=== PATIENT | male | born 1955 | race Caucasian/White ===

== ENCOUNTER 2019-11-04 09:02 | Inpatient (IN) ==
[2019-11-04] MEDS ORDERED: SODIUM CHLORIDE 0.9% 500 ML IV STA ×2 (09:28→10:41)
[2019-11-04 10:02] LABS: Basophils # 0.1 10*3/uL (0.0-0.2); Basophils % 0.6 % (0.0-0.8); Eosinophils % 0.2 % (0.00-10.9); Hematocrit 18.6 VOL% (42.0-52.0); Immature Granulocytes Absolute 0.14 #; Lymphocytes # 1.1 10*3/uL (1.4-4.0); Lymphocytes % 7.3 % (21.2-54.2); Mean Corpuscular HGB Conc 26.3 GM/DL (32-36); Mean Corpuscular Volume 74.4 FL (87-102); Mean Platelet Volume 9.2 FL (9.6-12.0); NRBC # 0.29 10*3/uL; Neutrophils % 78.9 % (38.7-73.9); Platelet Count 547 T/CUMM (130-400); Red Cell Distribution Width 16.9 % (9.3-17.3); White Blood Count 14.3 T/CUMM (4-12)
[2019-11-04 10:20] LABS: Hemoglobin 4.9 GM/DL (14.0-18.0)
[2019-11-04 10:24] LABS: Alanine Aminotransferase 11 U/L (16-61); Albumin 3.2 G/DL (3.4-5.0); Alkaline Phosphatase 172 U/L (45-117); Aspartate Amino Transferase 8 U/L (0-37); Bilirubin,Total < 0.39 MG/DL (0.2-1.0); Blood Urea Nitrogen 50 MG/DL (7-18); Calcium 9.4 MG/DL (8.5-10.1); Estimated Glom Filtration Rate 23 ML/MIN; Glucose 409 MG/DL (74-106); Osmolality,Calculated 280.5 MOS/KG (273-304); Total Protein 7.3 G/DL (6.4-8.3)
[2019-11-04 10:32] LABS: Anisocytosis 1+; Hypochromasia 1+; Microcytosis 1+; Ovalocytes Slight
[2019-11-04 10:33] LABS: Platelet Estimate Increased
[2019-11-04] MEDS ORDERED: INSULIN REGULAR 100 UNIT/ML SUBCUT STA (10:37)
[2019-11-04] MEDS ORDERED: SODIUM CHLORIDE 0.9% 1,000 ML IV PRN ×2 (10:50→12:07)
[2019-11-04] MEDS ORDERED: ALBUTEROL 2.5 MG/3 ML NEB RESP TX PRN (12:05)
[2019-11-04] MEDS ORDERED: ACETAMINOPHEN 325 MG TABLET PO PRN (12:05)
[2019-11-04] MEDS ORDERED: ONDANSETRON 4 MG/2 ML VIAL IV PRN (12:05)
[2019-11-04] MEDS ORDERED: GLUCAGON 1 MG VIAL IM PRN (12:08)
[2019-11-04] MEDS ORDERED: SODIUM CHLORIDE 0.9% 1,000 ML IV SCH (12:30)
[2019-11-04 13:11] LABS: Ferritin 5.4 ng/ml (26-388)
[2019-11-04 14:19] LABS: Calcium 8.5 MG/DL (8.5-10.1); Osmolality,Calculated 281.5 MOS/KG (273-304)
[2019-11-04 14:19] LABS: Folate > 24.0 NG/ML (5.4-24.0); Vitamin B12 223 PG/ML (211-911)
[2019-11-04] MEDS: PANTOPRAZOLE 40 MG VIAL IV SCH ×2 (14:45→21:50)
[2019-11-04] MEDS: SODIUM BICARB INJ 150 MEQ in STERILE WATER INJ 850 ML IV SCH ×2 (14:45→23:01)
[2019-11-04] MEDS: INSULIN REGULAR 100 UNIT/ML SUBCUT SCH ×2 (16:57→21:12)
[2019-11-04] MEDS: INSULIN LISPRO 100 UNIT/ML SUBCUT SCH (16:58)
[2019-11-05 05:46] LABS: Basophils # 0.1 10*3/uL (0.0-0.2); Basophils % 0.7 % (0.0-0.8); Eosinophils # 0.2 10*3/uL (0.0-0.87); Eosinophils % 1.9 % (0.00-10.9); Hematocrit 26.2 VOL% (42.0-52.0); Hemoglobin 7.7 GM/DL (14.0-18.0); Immature Granulocytes % 0.4 %; Immature Granulocytes Absolute 0.04 #; Lymphocytes # 1.2 10*3/uL (1.4-4.0); Lymphocytes % 12.4 % (21.2-54.2); Mean Corpuscular HGB Conc 29.4 GM/DL (32-36); Mean Corpuscular Volume 78.9 FL (87-102); Mean Platelet Volume 8.9 FL (9.6-12.0); Monocytes % 9.4 % (1.7-12.7); NRBC # 0.09 10*3/uL; Neutrophils % 75.2 % (38.7-73.9); Platelet Count 437 T/CUMM (130-400); Red Blood Count 3.32 MC/CUMM (3.8-5.5); Red Cell Distribution Width 18.7 % (9.3-17.3); White Blood Count 9.9 T/CUMM (4-12)
[2019-11-05 06:11] LABS: Osmolality,Calculated 277.8 MOS/KG (273-304); Total Protein 6.5 G/DL (6.4-8.3)
[2019-11-05] MEDS: DEXTROSE 10% 250 ML BAG IV PRN ×2 (06:39→10:50)
[2019-11-05] MEDS: INSULIN REGULAR 100 UNIT/ML SUBCUT SCH ×4 (07:49→20:56)
[2019-11-05] MEDS: INSULIN LISPRO 100 UNIT/ML SUBCUT SCH (07:50)
[2019-11-05] MEDS ORDERED: SODIUM CHLORIDE 0.9% 1,000 ML IV SCH (08:00)
[2019-11-05] MEDS: SODIUM BICARB INJ 150 MEQ in STERILE WATER INJ 850 ML IV SCH (08:15)
[2019-11-05] MEDS: PANTOPRAZOLE 40 MG VIAL IV SCH ×2 (08:16→20:57)
[2019-11-05] MEDS ORDERED: LIDOCAINE 2% 5 ML VIAL ONE (09:00)
[2019-11-05] MEDS ORDERED: propofoL 200 MG/20 ML VIAL IV ONE (09:00)
[2019-11-05] MEDS ORDERED: INSULIN GLARGINE 100 UNIT/ML SUBCUT SCH (09:00)
[2019-11-05] MEDS: SODIUM CHLORIDE 0.9% 1,000 ML IV SCH (10:01)
[2019-11-05] MEDS ORDERED: DEXTROSE 10% 250 ML IV ONE (10:44)
[2019-11-05] MEDS ORDERED: DEXTROSE 10% 250 ML BAG IV PRN (10:48)
[2019-11-05] MEDS ORDERED: MIDAZOLAM 2 MG/2 ML VIAL ONE (11:31)
[2019-11-05] MEDS: LEVOTHYROXINE 150 MCG TABLET PO SCH (12:38)
[2019-11-05] MEDS: SIMVASTATIN 10 MG TABLET PO SCH (12:38)
[2019-11-06] MEDS: SODIUM CHLORIDE 0.9% 1,000 ML IV SCH ×2 (01:28→23:26)
[2019-11-06 06:27] LABS: Basophils # 0.1 10*3/uL (0.0-0.2); Basophils % 0.7 % (0.0-0.8); Eosinophils # 0.4 10*3/uL (0.0-0.87); Eosinophils % 4.6 % (0.00-10.9); Hematocrit 24.6 VOL% (42.0-52.0); Hemoglobin 7.2 GM/DL (14.0-18.0); Immature Granulocytes % 0.6 %; Immature Granulocytes Absolute 0.05 #; Lymphocytes # 1.2 10*3/uL (1.4-4.0); Lymphocytes % 13.8 % (21.2-54.2); Mean Corpuscular HGB Conc 29.3 GM/DL (32-36); Mean Corpuscular Volume 79.9 FL (87-102); Mean Platelet Volume 9.5 FL (9.6-12.0); NRBC # 0.06 10*3/uL; Neutrophils % 68.3 % (38.7-73.9); Platelet Count 413 T/CUMM (130-400); Red Blood Count 3.08 MC/CUMM (3.8-5.5); Red Cell Distribution Width 18.9 % (9.3-17.3); White Blood Count 8.3 T/CUMM (4-12)
[2019-11-06 07:03] LABS: Calcium 8.2 MG/DL (8.5-10.1); Osmolality,Calculated 278.5 MOS/KG (273-304)
[2019-11-06] MEDS ORDERED: SODIUM CHLORIDE 0.9% 1,000 ML IV PRN (07:10)
[2019-11-06] MEDS: INSULIN REGULAR 100 UNIT/ML SUBCUT SCH ×4 (08:31→21:59)
[2019-11-06] MEDS: SIMVASTATIN 10 MG TABLET PO SCH (09:32)
[2019-11-06] MEDS: FERROUS SULFATE 325 MG TABLET PO SCH ×2 (09:32→20:48)
[2019-11-06] MEDS: LEVOTHYROXINE 150 MCG TABLET PO SCH (09:32)
[2019-11-06] MEDS ORDERED: IRON SUCROSE 300 MG in SODIUM CHLORIDE 0.9% 100 ML IV ONE (10:00)
[2019-11-06] MEDS ORDERED: ALBUTEROL 2.5 MG/3 ML NEB RESP TX PRN (11:27)
[2019-11-06] MEDS ORDERED: DEXTROSE 50% 25 GM/50 ML VIAL IV PRN (11:28)
[2019-11-06] MEDS: PANTOPRAZOLE 40 MG VIAL IV SCH ×2 (13:06→20:48)
[2019-11-06 14:32] LABS: Hematocrit 30.7 VOL% (42.0-52.0); Hemoglobin 8.9 GM/DL (14.0-18.0)
[2019-11-07 05:22] LABS: Basophils # 0.1 10*3/uL (0.0-0.2); Basophils % 0.7 % (0.0-0.8); Eosinophils # 0.3 10*3/uL (0.0-0.87); Eosinophils % 3.4 % (0.00-10.9); Hematocrit 29.4 VOL% (42.0-52.0); Hemoglobin 8.9 GM/DL (14.0-18.0); Immature Granulocytes % 0.5 %; Immature Granulocytes Absolute 0.05 #; Lymphocytes # 1.1 10*3/uL (1.4-4.0); Lymphocytes % 12.3 % (21.2-54.2); Mean Corpuscular HGB Conc 30.3 GM/DL (32-36); Mean Corpuscular Volume 82.8 FL (87-102); Mean Platelet Volume 9.3 FL (9.6-12.0); Monocytes % 11.5 % (1.7-12.7); NRBC # 0.03 10*3/uL; Neutrophils % 71.6 % (38.7-73.9); Platelet Count 346 T/CUMM (130-400); Red Blood Count 3.55 MC/CUMM (3.8-5.5); Red Cell Distribution Width 19.4 % (9.3-17.3); White Blood Count 9.2 T/CUMM (4-12)
[2019-11-07 05:43] LABS: Albumin 2.4 G/DL (3.4-5.0); Bilirubin,Total 1.1 MG/DL (0.2-1.0); Calcium 8.1 MG/DL (8.5-10.1); Osmolality,Calculated 288.1 MOS/KG (273-304); Total Protein 5.9 G/DL (6.4-8.3)
[2019-11-07 05:45] LABS: Risk Ratio 3.8; VLDL CHOLESTEROL 20.4 MG/DL
[2019-11-07] MEDS: INSULIN REGULAR 100 UNIT/ML SUBCUT SCH ×4 (08:29→21:16)
[2019-11-07] MEDS: FERROUS SULFATE 325 MG TABLET PO SCH ×2 (08:30→21:16)
[2019-11-07] MEDS: SIMVASTATIN 10 MG TABLET PO SCH (08:30)
[2019-11-07] MEDS: LEVOTHYROXINE 150 MCG TABLET PO SCH (08:30)
[2019-11-07] MEDS: SODIUM CHLORIDE 0.9% 1,000 ML IV SCH ×2 (08:30→14:03)
[2019-11-07] MEDS: PANTOPRAZOLE 40 MG VIAL IV SCH ×2 (08:30→21:16)
[2019-11-07] MEDS ORDERED: BISACODYL 5 MG TABLET PO ONE (13:00)
[2019-11-07] MEDS ORDERED: POLYETHYLENE GLYCOL POWDER 255 GM BOTTLE PO ONE (17:00)
[2019-11-08 05:14] LABS: Basophils # 0.1 10*3/uL (0.0-0.2); Basophils % 0.7 % (0.0-0.8); Eosinophils # 0.5 10*3/uL (0.0-0.87); Eosinophils % 4.2 % (0.00-10.9); Hematocrit 30.4 VOL% (42.0-52.0); Immature Granulocytes % 0.6 %; Immature Granulocytes Absolute 0.07 #; Lymphocytes % 8.6 % (21.2-54.2); Mean Corpuscular HGB Conc 29.6 GM/DL (32-36); Mean Corpuscular Volume 85.6 FL (87-102); Mean Platelet Volume 9.6 FL (9.6-12.0); Monocytes % 9.5 % (1.7-12.7); Neutrophils % 76.4 % (38.7-73.9); Platelet Count 358 T/CUMM (130-400); Red Blood Count 3.55 MC/CUMM (3.8-5.5); Red Cell Distribution Width 20.7 % (9.3-17.3); White Blood Count 11.1 T/CUMM (4-12)
[2019-11-08 05:31] LABS: Albumin 2.5 G/DL (3.4-5.0); Bilirubin,Total 1.1 MG/DL (0.2-1.0); Calcium 8.3 MG/DL (8.5-10.1); Osmolality,Calculated 284.5 MOS/KG (273-304); Total Protein 6.2 G/DL (6.4-8.3)
[2019-11-08] MEDS ORDERED: MAGNESIUM CITRATE 300 ML BOTTLE PO ONE (06:00)
[2019-11-08] MEDS: INSULIN REGULAR 100 UNIT/ML SUBCUT SCH ×2 (07:35→13:35)
[2019-11-08] MEDS: PANTOPRAZOLE 40 MG VIAL IV SCH (09:25)
[2019-11-08] MEDS ORDERED: INSULIN GLARGINE 100 UNIT/ML SUBCUT ONE (10:00)
[2019-11-08] MEDS ORDERED: LACTATED RINGERS 1,000 ML IV SCH (11:30)
[2019-11-08] MEDS ORDERED: LIDOCAINE 2% 5 ML VIAL ONE (12:06)
[2019-11-08] MEDS ORDERED: propofoL 200 MG/20 ML VIAL IV ONE (12:06)
[2019-11-08 12:47] VITALS: BP 133/63
[2019-11-08] MEDS: SIMVASTATIN 10 MG TABLET PO SCH (13:35)
[2019-11-08] MEDS: FERROUS SULFATE 325 MG TABLET PO SCH (13:35)
[2019-11-08] MEDS: LEVOTHYROXINE 150 MCG TABLET PO SCH (13:35)
== END 2019-11-08 17:11 | disposition home or self-care (01) | DRG 811 ==
LOC: N.ED 09:02 → N.EDINP 12:05 → SUATTDRO 12:05 → N.ICU 12:50 → N.2E 11-05 14:51
PROVIDERS: ADMIT Family Medicine; ATTEND Internal Medicine